=== PATIENT | female | born 1955 | race African-American/Black ===

== ENCOUNTER 2016-12-03 11:46 | Inpatient (IN) | payer MEDICARE, MEDICAID ==
[~2016-12-03] VITALS: Ht 177.8 cm; Wt 137.9 kg
[~2016-12-03 11:46] MED LIST: ALBU2.5V13 IH; ASCO-339 PO; ATROV IH; FERR-63 PO; HYDR50TA54 PO; METFORMIN PO; MULT1TAB11 PO; [UNRECOGNIZED DRUG - CODE] IV
[2016-12-03] MEDS ORDERED: INDO25CA PO (12:00)
[2016-12-03] MEDS ORDERED: ASPIRIN 81MG TABLET PO STA (12:25)
[2016-12-03] MEDS ORDERED: IPRATROPIUM BROMIDE (0.02%) 0.5MG/2.5ML NEB HHN STA (12:25)
[2016-12-03] MEDS ORDERED: NITROGLYCERIN OINT 1GM/INCH UDPKT TD STA (12:25)
[2016-12-03] MEDS ORDERED: ALBUTEROL (0.083%) 2.5MG/3ML NEB HHN STA (12:25)
[2016-12-03] MEDS ORDERED: METHYLPREDNISOLONE SOD SUCC 125 MG/2 ML VIAL IV STA (12:25)
[2016-12-03 13:10] LABS: BASOPHILS % 0.6 % (0.0-2.0); EOSINOPHILS % 2.1 % (0.0-5.0); HEMATOCRIT. 31.3 % (36.0-48.0); HEMOGLOBIN. 10.1 g/dL (12.0-16.0); LYMPHOCYTES % 13.7 % (20.0-50.0); MEAN CORPUSCULAR HEMOGLOBIN 29.1 pg (28.0-32.0); MEAN CORPUSCULAR VOLUME 89.9 fL (81.0-99.0); MEAN PLATELET VOLUME 8.7 fl (7.4-10.4); MONOCYTES % 5.8 % (2.0-8.0); NEUTROPHILS % 77.8 % (40.0-76.0); PLATELET 205 x1000/uL (130-400); RED BLOOD CELL COUNT 3.48 mill/uL (4.2-5.4); RED CELL DISTRIBUTION WIDTH 15.6 % (11.6-14.6)
[2016-12-03 13:18] LABS: INR 1.1; PROTHROMBIN TIME 11.9 sec (9.4-11.6)
[2016-12-03 13:29] LABS: CARBON DIOXIDE 29 mEq/L (21-32); CHLORIDE 105 mEq/L (98-107); TROPONIN I < 0.02 ng/mL (0.00-0.04)
[2016-12-03] MEDS ORDERED: FUROSEMIDE 40MG/4ML VIAL IVP NR (13:30)
[2016-12-03] MEDS ORDERED: NITROGLYCERIN OINT 1GM/INCH UDPKT TD NR (13:30)
[2016-12-03] MEDS ORDERED: MORPHINE SULFATE 4 MG/ML CPJ (NOT FOR IM USE) IV PRN (16:30)
[2016-12-03] MEDS ORDERED: CLONIDINE 0.1MG TABLET PO PRN (16:30)
[2016-12-03] MEDS ORDERED: IPRATROPIUM/ALBUTEROL 0.5-3(2.5)MG/3ML NEB HHN PRN (16:30)
[2016-12-03] MEDS ORDERED: ENOXAPARIN 40MG/0.4ML SYR SUBCUT SCH (16:30)
[2016-12-03] MEDS ORDERED: DIPHENHYDRAMINE 50MG/ML VIAL IV PRN (16:30)
[2016-12-03] MEDS ORDERED: LORAZEPAM 2MG/ML CPJ IV PRN (16:30)
[2016-12-03] MEDS ORDERED: ACETAMINOPHEN 325MG TABLET PO PRN (16:30)
[2016-12-03 21:00] VITALS: BP 140/81
[2016-12-03] MEDS: METHYLPREDNISOLONE SOD SUCC 40 MG/ML VIAL IV SCH (21:02)
[2016-12-03] MEDS: ENOXAPARIN 30MG/0.3ML SYR SUBCUT SCH (21:05)
[2016-12-03] MEDS: ONDANSETRON HCL 4MG/2ML VIAL IV PRN (22:25)
[2016-12-03 22:33] VITALS: BP 140/81
[2016-12-04] VITALS: BP 128/62
[2016-12-04 04:00] VITALS: BP 142/73
[2016-12-04] MEDS: METHYLPREDNISOLONE SOD SUCC 40 MG/ML VIAL IV SCH ×3 (05:14→21:51)
[2016-12-04 07:36] LABS: BASOPHILS % 0.3 % (0.0-2.0); EOSINOPHILS % 0.1 % (0.0-5.0); HEMATOCRIT. 30.4 % (36.0-48.0); HEMOGLOBIN. 9.9 g/dL (12.0-16.0); LYMPHOCYTES % 16.6 % (20.0-50.0); MEAN CORPUSCULAR HEMOGLOBIN 29.5 pg (28.0-32.0); MEAN CORPUSCULAR VOLUME 90.6 fL (81.0-99.0); MEAN PLATELET VOLUME 8.7 fl (7.4-10.4); MONOCYTES % 4.9 % (2.0-8.0); NEUTROPHILS % 78.1 % (40.0-76.0); PLATELET 195 x1000/uL (130-400); RED BLOOD CELL COUNT 3.36 mill/uL (4.2-5.4); RED CELL DISTRIBUTION WIDTH 15.3 % (11.6-14.6)
[2016-12-04 08:00] VITALS: BP 134/57
[2016-12-04 08:27] LABS: CARBON DIOXIDE 31 mEq/L (21-32); CHLORIDE 101 mEq/L (98-107); PHOSPHORUS 4.2 mg/dL (2.5-4.9)
[2016-12-04] MEDS: FOLIC ACID 1MG TABLET PO SCH (08:55)
[2016-12-04] MEDS: THIAMINE HCL 100MG TABLET PO SCH (08:55)
[2016-12-04] MEDS: ENOXAPARIN 30MG/0.3ML SYR SUBCUT SCH ×2 (08:55→21:50)
[2016-12-04] MEDS ORDERED: INFLUENZA VIRUS VACCINE 0.5ML SYR IM ONE (09:00)
[2016-12-04] MEDS ORDERED: FUROSEMIDE 40MG/4ML VIAL IV SCH (09:00)
[2016-12-04] MEDS ORDERED: PNEUMOCOCCAL 23-VAL P-SAC VAC 0.5 ML IM ONE (10:00)
[2016-12-04] MEDS ORDERED: DEXTROSE 50% WATER 50ML SYRINGE IV PRN (10:45)
[2016-12-04] MEDS ORDERED: ALBUTEROL (0.083%) 2.5MG/3ML NEB HHN PRN (10:45)
[2016-12-04 12:00] VITALS: BP 139/65
[2016-12-04] MEDS ORDERED: VANCOMYCIN 2,000 MG in DEXT 5% WATER 500 ML IV SCH (12:00)
[2016-12-04] MEDS ORDERED: SODIUM POLYSTYRENE SULFONATE 15 G/60 ML BOT PO NR (12:00)
[2016-12-04] MEDS: INSULIN LISPRO 100 UNITS/ML SUBCUT SCH ×3 (12:27→21:00)
[2016-12-04] MEDS: BLOOD SUGAR DIAGNOSTIC STRIP TEST SCH ×3 (12:27→21:42)
[2016-12-04] MEDS: ONDANSETRON HCL 4MG/2ML VIAL IV PRN (12:41)
[2016-12-04 15:55] VITALS: BP 116/57
[2016-12-04] MEDS: FUROSEMIDE 40MG/4ML VIAL IVP SCH (16:19)
[2016-12-04 16:44] LABS: CREATINE KINASE 158 IU/L (26-192); CREATINE KINASE MB FRACTION 1.1 ng/mL (0.5-3.6); HDL CHOLESTEROL 51 mg/dL (40-59); LDL CHOLESTEROL 106 mg/dL (5-100); T4 FREE 1.18 ng/dL (0.76-1.46); TROPONIN I < 0.02 ng/mL (0.00-0.04)
[2016-12-04 20:59] VITALS: BP 154/71
[2016-12-04] MEDS: HYDROCODONE/ACETAMINOPHEN 5/325MG TABLET PO PRN (21:50)
[2016-12-04] MEDS: VANCOMYCIN 1 G PREMIX 200 ML IV SCH (22:06)
[2016-12-04 23:31] LABS: CREATINE KINASE 136 IU/L (26-192); CREATINE KINASE MB FRACTION 0.9 ng/mL (0.5-3.6); TROPONIN I < 0.02 ng/mL (0.00-0.04)
[2016-12-05] VITALS: BP 132/62
[2016-12-05 04:00] VITALS: BP 147/77
[2016-12-05] MEDS: BLOOD SUGAR DIAGNOSTIC STRIP TEST SCH ×4 (06:27→20:51)
[2016-12-05 06:28] LABS: BASOPHILS % 0.2 % (0.0-2.0); HEMATOCRIT. 30.8 % (36.0-48.0); HEMOGLOBIN. 10.1 g/dL (12.0-16.0); LYMPHOCYTES % 10.4 % (20.0-50.0); MEAN CORPUSCULAR HEMOGLOBIN 29.7 pg (28.0-32.0); MEAN CORPUSCULAR VOLUME 90.4 fL (81.0-99.0); MEAN PLATELET VOLUME 9.4 fl (7.4-10.4); NEUTROPHILS % 84.4 % (40.0-76.0); PLATELET 207 x1000/uL (130-400); RED BLOOD CELL COUNT 3.41 mill/uL (4.2-5.4); RED CELL DISTRIBUTION WIDTH 15.3 % (11.6-14.6)
[2016-12-05] MEDS: FUROSEMIDE 40MG/4ML VIAL IVP SCH ×2 (06:28→17:25)
[2016-12-05] MEDS: INSULIN LISPRO 100 UNITS/ML SUBCUT SCH ×4 (06:28→20:50)
[2016-12-05] MEDS: METHYLPREDNISOLONE SOD SUCC 40 MG/ML VIAL IV SCH ×3 (06:29→20:51)
[2016-12-05 06:54] LABS: CARBON DIOXIDE 32 mEq/L (21-32); CHLORIDE 99 mEq/L (98-107); CREATINE KINASE 113 IU/L (26-192); CREATINE KINASE MB FRACTION 0.8 ng/mL (0.5-3.6); TROPONIN I < 0.02 ng/mL (0.00-0.04)
[2016-12-05] MEDS: VANCOMYCIN 1 G PREMIX 200 ML IV SCH (08:05)
[2016-12-05] MEDS: HYDROCODONE/ACETAMINOPHEN 5/325MG TABLET PO PRN ×2 (08:06→21:00)
[2016-12-05] MEDS: FOLIC ACID 1MG TABLET PO SCH (08:06)
[2016-12-05] MEDS: THIAMINE HCL 100MG TABLET PO SCH (08:06)
[2016-12-05] MEDS: ENOXAPARIN 30MG/0.3ML SYR SUBCUT SCH ×2 (08:06→20:51)
[2016-12-05 08:23] VITALS: BP 136/69
[2016-12-05 12:00] VITALS: BP 137/65
[2016-12-05 16:00] VITALS: BP 137/56
[2016-12-05 20:00] VITALS: BP 158/59
[2016-12-06] VITALS: BP 136/61
[2016-12-06] MEDS ORDERED: VANCOMYCIN 750 MG PREMIX 150 ML IV SCH
[2016-12-06 04:00] VITALS: BP 129/76
[2016-12-06] MEDS: METHYLPREDNISOLONE SOD SUCC 40 MG/ML VIAL IV SCH ×2 (05:40→12:59)
[2016-12-06] MEDS: BLOOD SUGAR DIAGNOSTIC STRIP TEST SCH ×2 (05:46→12:30)
[2016-12-06] MEDS: INSULIN LISPRO 100 UNITS/ML SUBCUT SCH ×2 (07:46→12:59)
[2016-12-06 08:00] VITALS: BP_SYST 141; BP_DIAS 5; BP_DIAS 54
[2016-12-06] MEDS: THIAMINE HCL 100MG TABLET PO SCH (08:41)
[2016-12-06] MEDS: ENOXAPARIN 30MG/0.3ML SYR SUBCUT SCH (08:42)
[2016-12-06] MEDS: FOLIC ACID 1MG TABLET PO SCH (08:42)
[2016-12-06] MEDS: HYDROCODONE/ACETAMINOPHEN 5/325MG TABLET PO PRN (08:42)
[2016-12-06] MEDS ORDERED: FUROSEMIDE 40MG/4ML VIAL IVP SCH (09:00)
[2016-12-06] MEDS ORDERED: METHADONE HCL 10MG TABLET PO SCH (11:45)
[2016-12-06 12:00] VITALS: BP 129/63
[2016-12-06 16:00] VITALS: BP 107/73
[2016-12-06 16:17] VITALS: BP 129/63
== END 2016-12-06 17:20 | disposition home or self-care (01) | DRG 291 ==
LOC: ER 12:04 → EDBEDREQ 12:30 → 7WST 14:06 → EDBEDREQ 14:09 → EDBEDREQTM 14:09 → ENRESERV 19:39
PROVIDERS: ADMIT Internal Medicine Nephrology; ATTEND Internal Medicine Nephrology
DX: I50.33 Acute on chronic diastolic (congestive) heart failure (principal); J96.20 Acute and chronic respiratory failure, unspecified whether with hypoxia or hypercapnia; N17.9 Acute kidney failure, unspecified; E44.0 Moderate protein-calorie malnutrition; E66.01 Morbid (severe) obesity due to excess calories; E87.1 Hypo-osmolality and hyponatremia; D64.9 Anemia, unspecified; E11.9 Type 2 diabetes mellitus without complications; L03.90 Cellulitis, unspecified; Z68.41 Body mass index [BMI] 40.0-44.9, adult; K21.9 Gastro-esophageal reflux disease without esophagitis; I11.0 Hypertensive heart disease with heart failure; E87.5 Hyperkalemia; E78.5 Hyperlipidemia, unspecified; F17.210 Nicotine dependence, cigarettes, uncomplicated; G89.4 Chronic pain syndrome; J44.9 Chronic obstructive pulmonary disease, unspecified; M21.961 Unspecified acquired deformity of right lower leg; M21.962 Unspecified acquired deformity of left lower leg; M85.80 Other specified disorders of bone density and structure, unspecified site; J45.909 Unspecified asthma, uncomplicated; Z96.653 Presence of artificial knee joint, bilateral; Z96.643 Presence of artificial hip joint, bilateral; Z88.8 Allergy status to other drugs, medicaments and biological substances; Z79.899 Other long term (current) drug therapy
CPT/HCPCS: 36415; 71010; 73522; 73560; 73630; 80048; 80053; 80061; 82550; 82553; 82962; 83036; 83605; 83690; 83735; 83880; 84100; 84439; 84443; 84484; 85025; 85379; 85610; 87040; 90686; 90732; 93005; 93306; 93970; 94640; 96374; 96375; 97116; 97162; 97166; 97530; 99285; J1200; J1650; J1815; J1940; J2405; J2920; J2930; J3370; J7040; J7060; J7611; A4315